=== PATIENT | male | born 1970 | race Caucasian/White ===

== ENCOUNTER → 2019-07-03 | Outpatient (CLI) | payer OTHER | LOC: M.LAB 04:55 | DX: E87.6 Hypokalemia (principal) ==

== ENCOUNTER → 2020-05-18 | Outpatient (CLI) | payer OTHER | LOC: M.MRI 14:30 | PROVIDERS: ATTEND Orthopaedic Surgery | DX: S83.241A Other tear of medial meniscus, current injury, right knee, initial encounter (principal); M25.461 Effusion, right knee; M17.11 Unilateral primary osteoarthritis, right knee; X58.XXXA Exposure to other specified factors, initial encounter; Y93.89 Activity, other specified; Y92.89 Other specified places as the place of occurrence of the external cause ==

== ENCOUNTER → 2020-06-11 | Outpatient (CLI) | payer OTHER ==
[~2020-06-11] MED LIST: ALEVE220 MG PO; FISH OIL 1,4001 EACH PO; HYDROCHLOROTHIA25 M2 PO; MELOXICAM15 MG PO; MEN'S ONE DAIL1 EAC1 PO; OLMESARTAN MEDO40 MG PO; OMEPRAZOLE40 MG PO; PENICILLIN V P500 MG PO; ROPINIROLE HCL3 MG PO; ROSUVASTATIN CA10 MG PO; TESTOSTERO200 MG/1 M IM
[2020-06-11 10:27] LABS: HEMATOCRIT 48.4 % (42.0-52.0); HEMOGLOBIN 16.9 gm/dL (14.0-18.0); MCH 31.9 pg (26.0-34.0); MCHC 34.9 g/dL (28.0-37.0); MCV 91.4 fL (80.0-100.0); MPV 7.3 fl. (7.2-11.1); RBC 5.3 mil/uL (4.50-6.00); RDW-CV 13.3 % (10.5-14.5); WBC 5.1 thou/uL (4.0-11.0)
[2020-06-11 10:41] LABS: CALCIUM 9.1 mg/dL (8.5-10.1); CREATININE 0.9 mg/dL (0.6-1.3); POTASSIUM 3.9 mmol/L (3.5-5.1); TOTAL BILIRUBIN 0.6 mg/dL (<0.1-1.0); TOTAL PROTEIN 7.3 g/dL (6.4-8.2)
[2020-06-11 10:41] LABS: URINE BILIRUBIN NEGATIVE (Negative); URINE BLOOD NEGATIVE (Negative); URINE CLARITY CLEAR; URINE COLOR YELLOW; URINE GLUCOSE-RANDOM NEGATIVE (Negative); URINE KETONES NEGATIVE (Negative); URINE LEUKOCYTES-REFLEX NEGATIVE (Negative); URINE NITRITE-REFLEX NEGATIVE (Negative); URINE PROTEIN NEGATIVE (Negative); URINE SPECIFIC GRAVITY 1.015 (1.005-1.030); URINE UROBILINOGEN 0.2 E.U./dl (0.2-1.0)
[2020-06-11 10:45] LABS: PROTIME 10.6 Seconds (9.20-11.50)
--- NOTE | 2020-06-11 10:48 | EKG ---
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
== END ==
LOC: M.LAB 07:56
PROVIDERS: ATTEND Orthopaedic Surgery
DX: Z01.812 Encounter for preprocedural laboratory examination (principal); M17.11 Unilateral primary osteoarthritis, right knee; Z20.828 Contact with and (suspected) exposure to other viral communicable diseases

== ENCOUNTER 2020-06-16 07:06 | Inpatient (IN) | payer OTHER ==
[~2020-06-16] VITALS: Ht 182.9 cm; Wt 133.8 kg
--- NOTE | ~2020-06-16 | OP ---
[facility] [address] [place] [address] OPERATIVE REPORT Name: MIS HARDY Room: [address] IN .R.#: [id number] Admission: 06/16/20 Attend Phys: Nuria Taveras Discharge: Date of : 70 Report #: [id number] THIS REPORT FOR: //name// cc: Ladonna Cronin MD, Veronica A. MD ~ CC: Hima Wilson DATE OF SERVICE: 06/16/2020 PREOPERATIVE DIAGNOSIS: Right knee osteoarthritis. POSTOPERATIVE DIAGNOSIS: Right knee osteoarthritis. PROCEDURE: Right total knee arthroplasty. SURGEON: Hima De La Rosa II, DO. BASKETBALL COACH: KATI Samuel. ANESTHESIA: General endotracheal. ESTIMATED BLOOD LOSS: 50 mL. ANTIBIOTICS: Ancef preoperatively. DRAINS: Medium Hemovac. COMPLICATIONS: None. CONDITION OF THE PATIENT: Stable to recovery room. IMPLANTS: Listed in operative record and progress note. BRIEF HISTORY: The patient was seen in the preoperative area. Preoperative H and P was performed. Site was marked, questions were answered. Risks and benefits were discussed with the patient in detail about surgery. The patient wished to proceed, assuming all risks. DESCRIPTION OF PROCEDURE: The patient was taken to the operative suite and placed supine on the operating table, given appropriate anesthesia. A well-padded tourniquet applied to upper thigh, which was inflated to 300 mmHg after gravity exsanguination. The operative knee was sterilely prepped and draped. Surgery began by midline incision. This was carried down to the subcutaneous tissues. A medial parapatellar arthrotomy was performed and [address] [address] OPERATIVE REPORT Name: MIS HARDY Room: [address] IN ..#: [id number] Admission: 06/16/20 Attend Phys: Nuria Taveras Discharge: Date of : 70 Report #: [id number] carried down to bone. Patella was then everted and excess soft tissue removed around the femur. Femoral cutting block was then applied, checked with drop eneida for rotational alignment, pinned in appropriate position and appropriate cuts were made. A 4-in-1 cutting block was then applied, checked for rotational alignment, pinned in appropriate position and appropriate cuts were made. The tibia was then exposed. Excess meniscus was removed. Retractors were placed along collateral ligaments. The tibial cutting block was then applied, pinned in appropriate position, checked with drop eneida for rotational alignment and slope and appropriate cut was made. Tibial bone was removed. The tibial base plate was then applied, checked for rotational alignment with the drop eneida and pinned in appropriate position. The femur was then applied and box cut was reamed. This was then trialed with appropriate spacer, which showed excellent fit and fill and excellent stability of the knee through all range of motion. The patella was then reamed in appropriate fashion and sized to appropriate size. Three peg holes were drilled and it was then trialed and showed excellent flexion, extension, excellent tracking of the patella within the groove. These trials were then removed. The tibia was punched in appropriate fashion. Bone ends were cleansed with Pulsavac irrigation and cement was mixed and applied to final implants. These were then malleted into position and held the knee in extension and compressed to allow cement to cure. After it cured, excess was removed using a Priddy and osteotome. Wound was then copiously irrigated and the final spacer was then malleted into position. The tourniquet was deflated. Hemostasis was obtained with electrocautery. Pain cocktail was injected. PRP gel was sprayed throughout the internal aspects of the knee. Medium Hemovac drain was applied. The capsule was closed with #2 FiberWire and #1 Vicryl in [id number] fashion. The skin was closed with 2-0 Vicryl and running 3-0 Monocryl. Dermabond and sterile dressing applied. A PolarCare applied. The patient was transported to recovery room in stable condition. Counts were correct throughout the procedure. By: [id number] Rubi De La Rosa II, DO /nt
[2020-06-16 07:40] VITALS: BP 150/82
[2020-06-16 12:48] VITALS: BP 139/88
[2020-06-16 14:23] LABS: HEMATOCRIT 45.1 % (42.0-52.0); HEMOGLOBIN 15.8 gm/dL (14.0-18.0); MCHC 35.1 g/dL (28.0-37.0); MCV 91.3 fL (80.0-100.0); MPV 7.1 fl. (7.2-11.1); RBC 4.95 mil/uL (4.50-6.00); RDW-CV 13.3 % (10.5-14.5); WBC 10.1 thou/uL (4.0-11.0)
[2020-06-16 14:36] LABS: CALCIUM 8.4 mg/dL (8.5-10.1); CREATININE 1.1 mg/dL (0.6-1.3); POTASSIUM 4.2 mmol/L (3.5-5.1)
[2020-06-16 16:11] VITALS: BP 138/80
[2020-06-16 20:18] VITALS: BP 135/77
[2020-06-17] VITALS (7 sets, daily range): BP systolic 125–137; BP diastolic 71–89
[2020-06-17 04:48] LABS: HEMATOCRIT 39.8 % (42.0-52.0); MCH 31.9 pg (26.0-34.0); MCHC 34.6 g/dL (28.0-37.0); MCV 92.3 fL (80.0-100.0); MPV 7.7 fl. (7.2-11.1); RBC 4.31 mil/uL (4.50-6.00); RDW-CV 13.7 % (10.5-14.5); WBC 11.7 thou/uL (4.0-11.0)
[2020-06-17 05:29] LABS: HEMOGLOBIN 13.8 gm/dL (14.0-18.0)
[2020-06-17 05:34] LABS: CALCIUM 8.1 mg/dL (8.5-10.1); POTASSIUM 3.8 mmol/L (3.5-5.1)
[2020-06-17] MEDS ORDERED: FLEXERIL PO (11:44)
[2020-06-17] MEDS ORDERED: XARELTO10 MG PO (11:45)
[2020-06-17] MEDS ORDERED: COLACE 100 MG100 MG PO (11:48)
[2020-06-17] MEDS ORDERED: METAMUCIL PACK3.4 GM PO (11:49)
== END 2020-06-17 13:06 | disposition home health service (06) | DRG 470 ==
LOC: M.TBA 07:06 → M.PRE 07:56 → M.ORTHSURG 12:30 → M.PRE 13:16 → EDSTATUS 14:24 → M.PRE 16:39 → M.ORTHSURG 06-17 13:06
PROVIDERS: Family Medicine; Orthopaedic Surgery; ADMIT Internal Medicine; ATTEND Internal Medicine
PROC: 0SRC0J9 Replacement of Right Knee Joint with Synthetic Substitute, Cemented, Open Approach (ICD-10-PCS; principal; 2020-06-16)
DX: M17.11 Unilateral primary osteoarthritis, right knee (principal); E66.01 Morbid (severe) obesity due to excess calories; I10 Essential (primary) hypertension; E78.5 Hyperlipidemia, unspecified; G47.33 Obstructive sleep apnea (adult) (pediatric); Z68.41 Body mass index [BMI] 40.0-44.9, adult; Z88.2 Allergy status to sulfonamides; Z90.49 Acquired absence of other specified parts of digestive tract; Z82.49 Family history of ischemic heart disease and other diseases of the circulatory system

== ENCOUNTER → 2020-11-09 | Outpatient (CLI) | payer OTHER ==
[~2020-11-09] MED LIST changes: +COLACE 100 MG100 MG PO; +FLEXERIL PO; +METAMUCIL PACK3.4 GM PO; +XARELTO10 MG PO
== END ==
LOC: M.LAB 15:39
PROVIDERS: ATTEND Orthopaedic Surgery
DX: Z01.812 Encounter for preprocedural laboratory examination (principal); Z20.822 Contact with and (suspected) exposure to COVID-19

== ENCOUNTER → 2020-11-12 | Outpatient (CLI) | payer OTHER | LOC: M.LAB 05:34 | PROVIDERS: ATTEND Orthopaedic Surgery | DX: E87.6 Hypokalemia (principal) ==

== ENCOUNTER → 2021-04-12 | Outpatient (CLI) | payer OTHER | LOC: M.MRI 13:10 | PROVIDERS: ATTEND Orthopaedic Surgery | DX: S83.232A Complex tear of medial meniscus, current injury, left knee, initial encounter (principal); S83.422A Sprain of lateral collateral ligament of left knee, initial encounter; M84.462A Pathological fracture, left tibia, initial encounter for fracture; M25.462 Effusion, left knee; M25.562 Pain in left knee; X58.XXXA Exposure to other specified factors, initial encounter; Y93.89 Activity, other specified; Y92.89 Other specified places as the place of occurrence of the external cause; Y99.8 Other external cause status ==

== ENCOUNTER → 2021-06-09 | Outpatient (CLI) | payer OTHER ==
[~2021-06-09] MED LIST changes: +BENICAR40 MG PO; +FUROSEMIDE 40 M40 MG PO; +HYDROCODON-ACE1 EAC7 PO; +KLOR-CON M2020 MEQ PO; +PROAIR HFA8.5 GM INH
[2021-06-09 15:32] LABS: ABSOLUTE BASOPHILS 0.1 thou/uL (0.0-0.2); ABSOLUTE EOSINOPHILS 0.1 thou/uL (0.0-0.7); ABSOLUTE LYMPHOCYTES 1.1 thou/uL (0.8-5.3); ABSOLUTE MONOCYTES 0.9 thou/uL (0.0-1.2); ABSOLUTE NEUTROPHILS 4.8 thou/uL (1.6-8.1); EOSINOPHILS 1.4 %; HEMATOCRIT 46.8 % (42.0-52.0); LYMPHOCYTES 15.8 %; MCH 29.9 pg (26.0-34.0); MCHC 34.2 g/dL (28.0-37.0); MCV 87.4 fL (80.0-100.0); MONOCYTES 13.3 %; MPV 6.9 fl. (7.2-11.1); NUCLEATED RBCS 0 /100WBC; PLATELET COUNT* 306 thou/uL (150-400); POLYS 68.5 %; RBC 5.36 mil/uL (4.50-6.00); RDW-CV 15.6 % (10.5-14.5)
[2021-06-09 15:40] LABS: URINE BILIRUBIN NEGATIVE (Negative); URINE BLOOD NEGATIVE (Negative); URINE CLARITY CLEAR; URINE COLOR YELLOW; URINE GLUCOSE-RANDOM NEGATIVE (Negative); URINE KETONES TRACE (Negative); URINE LEUKOCYTES-REFLEX NEGATIVE (Negative); URINE NITRITE-REFLEX NEGATIVE (Negative); URINE PROTEIN NEGATIVE (Negative); URINE UROBILINOGEN 0.2 E.U./dl (0.2-1.0)
[2021-06-09 15:44] LABS: PROTIME 10.8 Seconds (9.20-11.50)
[2021-06-09 15:59] LABS: ALBUMIN 4.3 g/dL (3.4-5.0); CALCIUM 8.9 mg/dL (8.5-10.1); CREATININE 1.4 mg/dL (0.6-1.3); POTASSIUM 4.6 mmol/L (3.5-5.1); TOTAL BILIRUBIN 0.7 mg/dL (<0.1-1.0)
== END ==
LOC: M.LAB 08:29
PROVIDERS: ATTEND Orthopaedic Surgery
DX: Z01.812 Encounter for preprocedural laboratory examination (principal); M17.12 Unilateral primary osteoarthritis, left knee

== ENCOUNTER 2021-06-15 07:06 | Inpatient (IN) | payer OTHER ==
[~2021-06-15] VITALS: Ht 182.9 cm; Wt 130.2 kg
--- NOTE | ~2021-06-15 | OP ---
[address] [address] OPERATIVE REPORT Name: MIS HARDY Room: [address] IN M.R.#: [id number] Admission: 06/15/21 Attend Phys: Nuria Taveras Discharge: Date of : 70 Report #: [id number] THIS REPORT FOR: cc: Ladonna Cronin MD, Veronica A. MD Greiner, Robert F. II DO ~ DATE OF SURGERY: 06/15/2021 PREOPERATIVE DIAGNOSIS: Left knee osteoarthritis. POSTOPERATIVE DIAGNOSIS: Left knee osteoarthritis. PROCEDURE: Left total knee arthroplasty. SURGEON: Hima De La Rosa II, D.O. INSTALLER METAL FLOORING: KATI Samuel. ANESTHESIA: Per operative record. ESTIMATED BLOOD LOSS: 50 mL. ANTIBIOTICS: Per operative record. DRAINS: Medium Hemovac. COMPLICATIONS: None. CONDITION: The patient stable to recovery room. DESCRIPTION OF PROCEDURE: The patient was taken to the operative suite, placed supine on the operative table, given appropriate anesthesia. A well-padded tourniquet applied to the upper thigh, which was inflated to 300 mmHg after gravity exsanguination for duration of procedure. The operative knee was sterilely prepped and draped. Surgery began by midline incision. This was carried down to subcutaneous tissues. A medial parapatellar arthrotomy was performed, carried down to bone. The patella was then everted and excess soft tissue removed from around the femur. Femoral cutting block was then applied, checked with drop eneida for rotational alignment, pinned in appropriate position and appropriate cuts were made. A 4-in-1 cutting block was then applied, checked for rotational alignment, pinned in appropriate position and appropriate cuts were made. The tibia was then exposed. Excess meniscus was removed. Retractor was placed on collateral ligaments. The tibial cutting block was then applied, pinned in appropriate position, checked with drop eneida for rotational alignment and slope and appropriate cut was made. Tibial bone was removed. Tibial baseplate was then applied, checked for rotational [place] [address] OPERATIVE REPORT Name: MIS HARDY Room: [address] [place] .R.#: [id number] Admission: 06/15/21 Attend Phys: Nuria Taveras Discharge: Date of : 70 Report #: [id number] drop eneida and pinned in appropriate position. Femur was then applied and box cut was reamed. This was then trialed with appropriate spacer, which showed excellent fit and fill and excellent stability of the through all range of motion. Patella was reamed in appropriate fashion, sized to appropriate size. Three peg holes were drilled and it was then trialed and it showed excellent flexion and extension, excellent tracking of patella within the groove. These trials were removed. The tibia was punched in appropriate fashion. Bone ends were cleansed with Pulsavac irrigation and cement was mixed, applied to final implants . These were then malleted into position, held in extension and compressed to allow cement to cure. After it cured, excess was removed using Adrian and osteotome. Wound was then copiously irrigated and the final spacer was then malleted into position. Tourniquet was deflated. Hemostasis was maintained with electrocautery. Pain cocktail was injected. Medium Hemovac drain was applied. Capsule was closed with #2 FiberWire and 1 Vicryl in [id number] fashion. Skin was closed with 2-0 Vicryl and running 3-0 Monocryl. Dermabond dressing applied. Seth wrap and PolarCare applied. The patient was transported to recovery room in stable condition. Counts were correct. By: 2018 [id number] De La Rosa II, DO /nt
[2021-06-15 09:00] VITALS: BP 153/87
[2021-06-15 15:35] VITALS: BP 148/81
[2021-06-15 20:50] VITALS: BP 156/82
[2021-06-16] VITALS: BP 118/72
[2021-06-16 04:08] VITALS: BP 119/80
[2021-06-16 04:40] LABS: HEMATOCRIT 39.2 % (42.0-52.0); HEMOGLOBIN 13.2 gm/dL (14.0-18.0); MCH 29.7 pg (26.0-34.0); MCHC 33.7 g/dL (28.0-37.0); MCV 88.1 fL (80.0-100.0); MPV 7.1 fl. (7.2-11.1); RBC 4.45 mil/uL (4.50-6.00); RDW-CV 15.4 % (10.5-14.5); WBC 10.7 thou/uL (4.0-11.0)
[2021-06-16 05:17] LABS: ALBUMIN 3.2 g/dL (3.4-5.0); CALCIUM 8.3 mg/dL (8.5-10.1); CREATININE 0.9 mg/dL (0.6-1.3); POTASSIUM 4.1 mmol/L (3.5-5.1); TOTAL BILIRUBIN 0.5 mg/dL (<0.1-1.0); TOTAL PROTEIN 6.1 g/dL (6.4-8.2)
[2021-06-16 07:40] VITALS: BP 149/89
[2021-06-16] MEDS ORDERED: XARELTO10 MG PO (09:18)
[2021-06-16] MEDS ORDERED: PERCOCET PO (09:18)
[2021-06-16 11:13] VITALS: BP 149/89
[2021-06-16 11:33] VITALS: BP 149/89
[2021-06-16 15:09] VITALS: BP 149/89
[2021-06-16] MEDS ORDERED: FLEXERIL PO (15:21)
[2021-06-16] MEDS ORDERED: ATIVAN0.5 M1 PO (15:21)
== END 2021-06-16 14:25 | disposition home health service (06) | DRG 470 ==
LOC: M.TBA 07:06 → M.3W 12:06 → M.ORTHSURG 12:24 → M.3W 06-16 14:25
PROVIDERS: Internal Medicine; Orthopaedic Surgery; ADMIT Internal Medicine; ATTEND Internal Medicine
PROC: 0SRD0J9 Replacement of Left Knee Joint with Synthetic Substitute, Cemented, Open Approach (ICD-10-PCS; principal; 2021-06-15)
DX: M17.12 Unilateral primary osteoarthritis, left knee (principal); Z96.651 Presence of right artificial knee joint; I10 Essential (primary) hypertension; Z20.822 Contact with and (suspected) exposure to COVID-19; Z88.2 Allergy status to sulfonamides; Z88.8 Allergy status to other drugs, medicaments and biological substances; Z90.49 Acquired absence of other specified parts of digestive tract; Z87.891 Personal history of nicotine dependence; Z79.899 Other long term (current) drug therapy